=== PATIENT | male | born 1990 | race Caucasian/White ===

== ENCOUNTER 2020-12-30 03:00 | Emergency (ER) | payer SELFPAY ==
[~2020-12-30] VITALS: Ht 182.9 cm; Wt 90.7 kg
[2020-12-30 03:35] VITALS: BP 116/63
--- NOTE | 2020-12-30 03:35 | NUR ---
TO BED AMBULATORY
--- NOTE | 2020-12-30 03:50 | NUR ---
Dr. Garcia examining patient.
--- NOTE | 2020-12-30 03:50 | NUR ---
30/M BIB SELF, CC: LEFT EYE PAIN X 1 DAY, PT STATES SOMETHING GOT INTO HIS LEFT EYE, NO DISCHARGE, NO REDNESS, NO DISTRESS, SAFETY MEASURES IN PLACE, NO PAST MED HX, NKA.
--- NOTE | 2020-12-30 03:50 | NUR ---
PT TAKEN TO BED 6
[2020-12-30] MEDS ORDERED: ERYTHROMYCIN 0.5% OPTH OINT 1 GM TUBE OP ONE (03:55)
[2020-12-30] MEDS ORDERED: TETRACAINE HCL/PF 0.5% OPTH 4 ML BTL OP ONE (03:55)
[2020-12-30] MEDS ORDERED: FLUORESCEIN OPTH STRIP 1 MG OP ONE (03:55)
--- NOTE | 2020-12-30 04:20 | NUR ---
ASSISTED ER MD IN CHECKING AND ADMINISTERING THE MEDS IN PATIENT'S EYE, TOLERATED WELL.
[2020-12-30] MEDS ORDERED: TOBR5SOL17 OP (04:26)
[2020-12-30] MEDS ORDERED: KETO5SOL OP (04:26)
[2020-12-30] MEDS ORDERED: NAPH15SO OP (04:26)
[2020-12-30 04:42] VITALS: BP 116/63
--- NOTE | 2020-12-30 04:42 | NUR ---
Patient discharged with v/s stable. Written and verbal after care instructions given and explained. Patient alert, oriented and verbalized understanding of instructions. Ambulatory with steady gait. All questions addressed prior to discharge. ID band removed. Patient advised to follow up with PMD. Rx of KETOROLAC EYE DROP, NAPHAZOLINE EYE DROP AND TOBRAMYCIN EYE DROP given. Patient educated on indication of medication including possible reaction and side effects. Opportunity to ask questions provided and answered. FAMILY IS WAITING OUTSIDE.
== END 2020-12-30 04:42 | disposition home or self-care (01) ==
LOC: MED 03:00
DX: T15.92XA Foreign body on external eye, part unspecified, left eye, initial encounter (principal)
CPT/HCPCS: 99284

== ENCOUNTER 2021-02-27 09:05 | Emergency (ER) | payer SELFPAY ==
[~2021-02-27] VITALS: Ht 177.8 cm; Wt 72.6 kg
[~2021-02-27 09:05] MED LIST: KETO5SOL OP; NAPH15SO OP; TOBR5SOL17 OP
[2021-02-27 09:09] VITALS: BP 134/74
--- NOTE | 2021-02-27 09:20 | NUR ---
PATIENT AMBULATED TO BED 8.
--- NOTE | 2021-02-27 09:45 | NUR ---
30/M presents to ED with c/o rash to genital area for one month. Patient states rash has been worsening and "feeling itchy" with no relief for one month. Patient states he did not take anything for the rash or the itch, denies fever, chills, nausea or vomiting. Denies dysuria, hematuria or discharge.
--- NOTE | 2021-02-27 10:08 | NUR ---
Patient being evaluated by physician at bedside.
[2021-02-27 10:40] LABS: APPEARANCE,URINE CLEAR (CLEAR); BILIRUBIN,URINE NEGATIVE (NEGATIVE); BLOOD, URINE NEGATIVE (NEGATIVE); COLOR,URINE YELLOW (YELLOW); LEUKOCYTE ESTERASE ,URINE NEGATIVE (NEGATIVE); NITRITE, URINE NEGATIVE (NEGATIVE); PH,URINE 6.5 (5.0-9.0); UGLUCOSE NEGATIVE (NEGATIVE)
[2021-02-27 10:58] LABS: RBC,URINE 0-5 /HPF (0-5); WBC,URINE 0-5 /HPF (0-5)
[2021-02-27] MEDS ORDERED: CEPH-588 PO (11:37)
[2021-02-27] MEDS ORDERED: PRED20TA5 PO (11:37)
--- NOTE | 2021-02-27 12:00 | NUR ---
Patient discharged with v/s stable. Written and verbal after care instructions given and explained. Patient alert, oriented and verbalized understanding of instructions. Ambulatory with steady gait. All questions addressed prior to discharge. ID band removed. Patient advised to follow up with PMD. Rx of Keflex and Prednisone given. Patient educated on indication of medication including possible reaction and side effects. Opportunity to ask questions provided and answered.
[2021-02-27 12:02] VITALS: BP 114/70
[2021-02-27 12:19] LABS: RAPID PLASMA REAGIN REACTIVE (Non Reactiv)
--- NOTE | 2021-02-27 12:24 | NUR ---
LATE ENTRY. CRITICAL LAB RECEIVED- REACTIVE RPR. DR PRECIADO MADE AWARE. NUMBER ON FILE IS NOT VALID. LEFT MESSAGE WITH GRANDMOTHER/ NUMBER ON FILE, TO HAVE RUDDY CALL US BACK.
== END 2021-02-27 12:00 | disposition home or self-care (01) ==
LOC: MED 09:05
DX: N49.2 Inflammatory disorders of scrotum (principal); L03.116 Cellulitis of left lower limb; L03.115 Cellulitis of right lower limb; F17.210 Nicotine dependence, cigarettes, uncomplicated; Z79.899 Other long term (current) drug therapy; Z79.2 Long term (current) use of antibiotics
CPT/HCPCS: 36415; 81001; 86592; 87491; 99283

== ENCOUNTER 2021-02-28 16:18 | Emergency (ER) | payer SELFPAY ==
[~2021-02-28] VITALS: Ht 167.6 cm; Wt 68.9 kg
[~2021-02-28 16:18] MED LIST changes: +CEPH-588 PO; +PRED20TA5 PO
[2021-02-28 16:22] VITALS: BP 120/78
--- NOTE | 2021-02-28 16:26 | NUR ---
PT TAKEN TO [facility]
[2021-02-28] MEDS ORDERED: PENICILLIN G BENZATHINE L-A 1.2 MU/2 ML SYR IM ONE (16:30)
--- NOTE | 2021-02-28 16:45 | NUR ---
30 yo m seen in ER yesterday for genital rash. pt received call from [facility] that tests came back positive for symphilis and is asked to come to ER for treatment. pt reports 6/10 throbbing pain in genital area. denies urinary symptoms. pmh: recurrent gonorrhea meds: none nka
--- NOTE | 2021-02-28 16:49 | NUR ---
PT TAKEN TO BED 9
[2021-02-28 17:30] VITALS: BP 120/78
--- NOTE | 2021-02-28 17:30 | NUR ---
Patient discharged with v/s stable. Written and verbal after care instructions given and explained. Patient alert, oriented and verbalized understanding of instructions. Ambulatory with steady gait. All questions addressed prior to discharge. ID band removed. Patient advised to follow up with PMD. Opportunity to ask questions provided and answered.
== END 2021-02-28 17:30 | disposition home or self-care (01) ==
LOC: MED 16:18
DX: A53.9 Syphilis, unspecified (principal); Z79.899 Other long term (current) drug therapy; Z79.1 Long term (current) use of non-steroidal anti-inflammatories (NSAID); Z79.2 Long term (current) use of antibiotics
CPT/HCPCS: 96372; 99283; J0561

== ENCOUNTER 2021-04-20 19:04 | Emergency (ER) | payer MEDICAID ==
[~2021-04-20] VITALS: Ht 177.8 cm; Wt 77.1 kg
--- NOTE | 2021-04-20 19:18 | NUR ---
TO BED AMBULATORY
[2021-04-20] MEDS ORDERED: cefTRIAXone 1,000 MG in LIDOCAINE MPF 1% 2.1 ML IM ONE (19:50)
[2021-04-20] MEDS ORDERED: KETOROLAC 60 MG/2 ML VIAL IM ONE (19:50)
[2021-04-20] MEDS ORDERED: ACETAMINOPHEN 325 MG TAB PO ONE (19:50)
[2021-04-20] MEDS ORDERED: DOXYCYCLINE 100 MG CAP PO SCH (19:50)
--- NOTE | 2021-04-20 19:50 | NUR ---
30 YO/M BIB SELF W C/O R TESTICULAR SWELLING, REDNESS AND PAIN 10/ X5 DAYS CONSTANT BUT WORSENING, INTENSE LIKE, NON-RADIATING. PATIENT DENIES ANY FEVER, CHILLS, URINARY BURNING, FREQUENCY, URGENCY, RETENTION OR ANY URINARY BROBLEMS OR ABNORMAL DISCHARGE. DENIES ANY INJURY. SWELLING NOTED TO R TESTICLE. PT LAYING IN BED LOCKED IN LOWEST POSITION W X1 SIDERAIL UP, PLACED IN GOWN, PROVIDED W A BLANKET. NAD NOTED, WILL CONTINUE TO MONITOR. PMH:DENIES NKA
[2021-04-20] MEDS ORDERED: cefTRIAXone 1,000 MG VIAL ONE (20:03)
[2021-04-20] MEDS ORDERED: LIDOCAINE MPF 1% 5 ML ONE (20:03)
--- NOTE | 2021-04-20 20:21 | NUR ---
US AT BEDSIDE.
[2021-04-20 21:26] LABS: APPEARANCE,URINE SL CLOUDY (CLEAR); BILIRUBIN,URINE NEGATIVE (NEGATIVE); BLOOD, URINE 1+ (NEGATIVE); LEUKOCYTE ESTERASE ,URINE 1+ (NEGATIVE); NITRITE, URINE NEGATIVE (NEGATIVE); PH,URINE 6.5 (5.0-9.0); UGLUCOSE NEGATIVE (NEGATIVE)
[2021-04-20 21:27] LABS: COLOR,URINE AMBER (YELLOW)
[2021-04-20 21:39] LABS: RBC,URINE 0-5 /HPF (0-5); WBC,URINE TOO MANY TO COUNT /HPF (0-5)
[2021-04-20] MEDS ORDERED: CEPH500C16 PO (22:10)
[2021-04-20] MEDS ORDERED: DOXY-487 PO (22:10)
[2021-04-20] MEDS ORDERED: IBUP-2213 PO (22:10)
[2021-04-20 22:32] VITALS: BP 114/56
--- NOTE | 2021-04-20 22:32 | NUR ---
Patient discharged with v/s stable. Written and verbal after care instructions given and explained. Patient alert, oriented and verbalized understanding of instructions. Ambulatory with steady gait. All questions addressed prior to discharge. ID band removed. Patient advised to follow up with PMD. Rx of KEFLEX, DOXCYCLINE HYCLATE given. Patient educated on indication of medication including possible reaction and side effects. Opportunity to ask questions provided and answered.
== END 2021-04-20 22:32 | disposition home or self-care (01) ==
LOC: MED 19:04
DX: N39.0 Urinary tract infection, site not specified (principal); N43.3 Hydrocele, unspecified; F17.210 Nicotine dependence, cigarettes, uncomplicated; F15.90 Other stimulant use, unspecified, uncomplicated; Z20.2 Contact with and (suspected) exposure to infections with a predominantly sexual mode of transmission; Z71.6 Tobacco abuse counseling; Z79.899 Other long term (current) drug therapy
CPT/HCPCS: 36415; 76870; 81001; 87086; 96372; 99284; J0696; J1885; J2001; Q0092; 87491

== ENCOUNTER 2023-04-03 20:46 | Emergency (ER) | payer MEDICAID ==
[~2023-04-03] VITALS: Ht 177.8 cm; Wt 72.6 kg
[~2023-04-03 20:46] MED LIST changes: -CEPH-588 PO; +CEPH500C16 PO; +DOXY-487 PO; +IBUP-2213 PO; -TOBR5SOL17 OP; +TOBR5SOL38 OP
[2023-04-03 20:50] VITALS: BP 128/79; PULSE 92; RESP 18; TEMP 97.8; O2SAT 100
[2023-04-03 21:39] LABS: APPEARANCE,URINE CLEAR (CLEAR); BILIRUBIN,URINE NEGATIVE (NEGATIVE); BLOOD, URINE NEGATIVE (NEGATIVE); COLOR,URINE YELLOW (YELLOW); LEUKOCYTE ESTERASE ,URINE NEGATIVE (NEGATIVE); NITRITE, URINE NEGATIVE (NEGATIVE); PROTEIN,URINE NEGATIVE (NEGATIVE); UGLUCOSE NEGATIVE (NEGATIVE); UROBILINOGEN,URINE 0.2 EU/dL (0.2 - 1)
[2023-04-03 23:00] VITALS: O2SAT 100
== END 2023-04-03 23:30 | disposition home or self-care (01) ==
LOC: MED 20:46
DX: Z20.2 Contact with and (suspected) exposure to infections with a predominantly sexual mode of transmission (principal); Z02.89 Encounter for other administrative examinations; Z79.899 Other long term (current) drug therapy
CPT/HCPCS: 81003; 99283